=== PATIENT | female | born 1955 | race Hispanic/Latino ===

== ENCOUNTER 2024-05-29 19:19 | Emergency (ER) | payer OTHER ==
[~2024-05-29] VITALS: Ht 149.9 cm; Wt 68.0 kg
[~2024-05-29 19:19] MED LIST: AMOX-426 PO; ESOM40CA66 PO; HYDR25SU38 RC; LACT10SO9 PO; ROSU5TAB51 PO
[2024-05-29 19:21] VITALS: TEMP 98.4
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
--- NOTE | 2024-05-29 20:03 | HMCIMG ---
CT HEAD/BRAIN W/O CONTRAST HISTORY: Status post fall COMPARISON: None TECHNIQUE: Multiple sequential axial images of the head were obtained from the base of the skull through vertex. Patient was not given contrast through intravenous route. FINDINGS: The ventricles and extraventricular CSF spaces are nondilated for patient's age. There is no midline shift, mass effect or herniation. No acute intracranial bleed is seen. Visualized portion of the paranasal sinuses are grossly within normal limits. IMPRESSION: 1. No acute intracranial bleed is seen. CT was performed with one or more following dose reduction techniques: automated exposure control, adjustment of the mA and kv according to patient's size, or use of a iterative reconstruction technique.
--- NOTE | 2024-05-29 20:04 | HMCIMG ---
CT CERVICAL SPINE W/O CONTRAST HISTORY: Status post fall COMPARISON: None TECHNIQUE: Multiple sequential axial images of the cervical spine were obtained including post processing sagittal and coronal reconstruction images. Patient was not given contrast through intravenous route. FINDINGS: There is straightening of normal lordotic cervical curvature which may be related to muscle spasm or positioning. There is no loss of vertebral height. Evaluation for disc and cord pathology is limited with CT study. No evidence of fracture or dislocation is seen. There are degenerative changes with cervical spine spondylosis. IMPRESSION: 1. No fracture is seen. DJD. CT was performed with one or more following dose reduction techniques: automated exposure control, adjustment of the mA and kv according to patient's size, or use of a iterative reconstruction technique.
[2024-05-29] MEDS ORDERED: METH-662 PO (20:17)
[2024-05-29] MEDS: ORPHENADRINE 60MG/2ML IM ONE (20:22)
[2024-05-29] MEDS: acetaMINOPHEN 500 MG TABLET PO ONE (20:22)
[2024-05-29 20:30] VITALS: BP 111/55; PULSE 69; RESP 18; O2SAT 97
== END 2024-05-29 21:00 | disposition home or self-care (01) ==
LOC: EDH 19:19
DX: M62.838 Other muscle spasm (principal); E03.9 Hypothyroidism, unspecified; F41.9 Anxiety disorder, unspecified; Z79.899 Other long term (current) drug therapy; Z88.1 Allergy status to other antibiotic agents; Z88.7 Allergy status to serum and vaccine; V89.2XXA Person injured in unspecified motor-vehicle accident, traffic, initial encounter; Y93.89 Activity, other specified; Y92.488 Other paved roadways as the place of occurrence of the external cause; Y99.8 Other external cause status
CPT/HCPCS: 70450; 72125; 96372; 99285; J2360